=== PATIENT | male | born 1980 | race African-American/Black ===

== ENCOUNTER 2016-11-03 16:06 | Emergency (ER) | payer OTHER ==
[~2016-11-03] VITALS: Ht 182.9 cm; Wt 81.6 kg
[2016-11-03] MEDS ORDERED: levETIRAcetam 500mg vial IV ONE (16:09)
[2016-11-03] MEDS ORDERED: levETIRAcetam 500 MG in D5W 110 ML IV ONE (16:15)
[2016-11-03] MEDS ORDERED: LORazepam Inj 2mg/ml 1ml IV ONE (16:15)
--- NOTE | 2016-11-03 16:25 | Emergency Room Report ---
History of Present Illness General Chief Complaint: Seizure Source: EMS (Oleksandr Urrutia M.D.) Present Illness HPI Patient presents after having a seizure. He's also reported to have drunk alcohol. There is some trauma to his right upper lip and there bleeding there. The patient's been combative with a medics. His Accu-Chek was 105 in the field. His a history of alcohol use. There is apparently a history of seizures. Patient is noncommunicative at this time and no other history is available. (Oleksandr Urrutia M.D.) Allergies: Coded Allergies: UNABLE TO ASSESS (Unverified , 11/03/16) Patient History Limited by: medical condition Past Medical History: see triage record Social History: Reports: alcohol use Social History Narrative homeless Reviewed Nursing Documentation: PMH: Agreed, PSxH: Agreed (Oleksandr Urrutia M.D.) Nursing Documentation-PMH Past Medical History: No History, Except For Hx Hypertension: Yes Hx Seizures: Yes (Oleksandr Urrutia M.D.) Review of Systems All Other Systems: limited (Oleksandr Urrutia M.D.) Physical Exam Vital Signs Date Time Temp Pulse Resp B/P Pulse Ox O2 Delivery O2 Flow Rate FiO2 11/03/16 15:58 101.8 115 28 178/ Sp02 EP Interpretation: reviewed, normal General Appearance: other - dishevelled, Stupor - posslbly post-ictal versus intoxication Head: normocephalic, other - abrasion R cheek Eyes: bilateral eye PERRL, bilateral eye Scleral Injection ENT: moist mucus membranes - no lingual macerations, but .5 cm laceration R anterior inner mouth Neck: supple, no bony tend Respiratory: lungs clear, normal breath sounds Cardiovascular #1: regular rate, rhythm Cardiovascular #2: 2+ radial (R) Gastrointestinal: normal inspection, non tender, no mass, non-distended, abnormal bowel sounds - decreased Musculoskeletal: back normal, gait/station normal, normal range of motion Neurologic: motor strength/tone normal, DTRs symmetric, sensory intact, other - + gag and moves all 4 with good strength Psychiatric: other - stupor Skin: warm/dry, abrasions - r cheek and hands (Oleksandr Urrutia M.D.) Medical Decision Making Diagnostic Impression: Primary Impression: Epileptic seizure, generalized ER Course Patient presents with stupor with alleged seizure and possible alcohol ingestion. Ddx: post ictal, subtherapeutic medications, electrolyte abnormalities, bleed, trauma, electrolyte abnormalities amongst others. Emergent evaluation with CT, labs, EKG. Treatment with ativan. As he has h/o seizure, will give keppra. Patient more awake, giving name and states has been on dilantin and tegretal. Labs significant for no alcohol, elevated WBC. No dilantin or tegretal. CT negative for bleed. Loaded with dilantin. Patient refusing sutures. Improved. Ambulatory. Still not clear mentation. Possibly due to loading dilantin. Signed out to Dr. Gallardo. Laboratory Tests Test 11/03/16 17:15 White Blood Count 18.8 K/UL (4.8-10.8) H Red Blood Count 4.06 M/UL (4.70-6.10) L Hemoglobin 13.7 G/DL (14.2-18.0) L Hematocrit 39.0 % (42.0-52.0) L Mean Corpuscular Volume 96 FL (80-99) Mean Corpuscular Hemoglobin 33.9 PG (27.0-31.0) H Mean Corpuscular Hemoglobin Concent 35.2 G/DL (32.0-36.0) Red Cell Distribution Width 11.2 % (11.6-14.8) L Platelet Count 248 K/UL (150-450) Mean Platelet Volume 7.3 FL (6.5-10.1) Neutrophils (%) (Auto) % (45.0-75.0) Lymphocytes (%) (Auto) % (20.0-45.0) Monocytes (%) (Auto) % (1.0-10.0) Eosinophils (%) (Auto) % (0.0-3.0) Basophils (%) (Auto) % (0.0-2.0) Differential Total Cells Counted 100 Neutrophils % (Manual) 87 % (45-75) H Lymphocytes % (Manual) 4 % (20-45) L Monocytes % (Manual) 9 % (1-10) Eosinophils % (Manual) 0 % (0-3) Basophils % (Manual) 0 % (0-2) Band Neutrophils 0 % (0-8) Platelet Estimate Adequate Platelet Morphology Normal Red Blood Cell Morphology Normal Sodium Level 143 mEQ/L (135-145) Potassium Level 3.6 mEQ/L (3.4-4.9) Chloride Level 100 mEQ/L (98-107) Carbon Dioxide Level 24 mEQ/L (20-30) Anion Gap 19 (5-15) H Blood Urea Nitrogen 10 mg/dL (7-23) Creatinine 1.2 mg/dL (0.7-1.2) Estimate Glomerular Filtration Rate > 60 mL/min (>60) Glucose Level 101 mg/dL (74-106) Calcium Level 9.9 mg/dL (8.6-10.2) Total Bilirubin 0.5 mg/dL (0.0-1.2) Aspartate Amino Transferase (AST) 19 U/L (5-40) Alanine Aminotransferase (ALT) 11 U/L (3-41) Alkaline Phosphatase 93 U/L (40-129) Total Creatine Kinase 533 U/L (38-174) H Troponin I < 0.30 ng/mL (<=0.30) Total Protein 7.7 g/dL (6.6-8.7) Albumin 4.5 g/dL (3.5-5.2) Globulin 3.2 g/dL Albumin/Globulin Ratio 1.4 (1.0-2.7) Salicylates Level < 1 mg/dL (10-30) L Acetaminophen Level < 10 ug/mL (10-30) L Phenytoin (Dilantin) Level < 0.8 ug/mL (10-20) L Carbamazepine (Tegretol) Level < 2.0 ug/mL (4.0-12.0) L Serum Alcohol < 10 mg/dL (Oleksandr Urrutia M.D.) ER Course This patient signed out to me. He has a history of seizure and did not take his Dilantin. He presents with a seizure activity. He said he take Dilantin 3 mg in the morning and 2 at night. Denies any other complaint. Does not want to be switched or any other new medication. atient is awake and walking around without any difficulty. No postictal period. Does not want to stay. (GREG GALLARDO M.D.) EKG Diagnostic Results Rate: tachycardiac ST Segments: no acute changes (Oleksandr Urrutia M.D.) Rhythm Strip Diag. Results EP Interpretation: yes Rhythm: no PVC's, no ectopy, other - ST (Oleksandr Urrutia M.D.) Last Vital Signs Date Time Temp Pulse Resp B/P Pulse Ox O2 Delivery O2 Flow Rate FiO2 11/03/16 15:58 101.8 115 28 178/ Status: improved (Oleksandr Urrutia M.D.) Status: improved (GREG GALLARDO M.D.) Disposition: HOME, SELF-CARE Condition: Stable Scripts Phenytoin Sodium Extended* (DILANTIN*) 100 Mg Capsule 300 MG ORAL BEDTIME, #90 CAP Prov: GREG GALLARDO M.D. 11/04/16 Patient Instructions: Seizure, Adult Additional Instructions: Take your medication. Return if worse. Follow with your DrGolden in 7 days. Oleksandr Urrutia M.D. Nov 03, 2016 16:25 GREG GALLARDO M.D. Nov 04, 2016 00:14
[2016-11-03] MEDS ORDERED: LORazepam Inj 2mg/ml 1ml IM ONE (16:45)
[2016-11-03 17:36] VITALS: BP 127/73
[2016-11-03 17:59] LABS: MEAN CORPUSCULAR HEMOGLOBIN 33.9 PG (27.0-31.0); MEAN CORPUSCULAR HGB CONC 35.2 G/DL (32.0-36.0); MEAN CORPUSCULAR VOLUME 96 FL (80-99); MEAN PLATELET VOLUME 7.3 FL (6.5-10.1); PLATELET COUNT 248 K/UL (150-450); RED BLOOD COUNT 4.06 M/UL (4.70-6.10); RED CELL DISTRIBUTION WIDTH 11.2 % (11.6-14.8); WHITE BLOOD COUNT 18.8 K/UL (4.8-10.8)
[2016-11-03 18:14] LABS: TROPONIN I < 0.30 ng/mL (<=0.30)
[2016-11-03 18:17] LABS: ACETAMINOPHEN < 10 ug/mL (10-30); ALANINE AMINOTRANSFERASE 11 U/L (3-41); ALBUMIN/GLOBULIN RATIO 1.4 (1.0-2.7); ALCOHOL < 10 mg/dL; ANION GAP 19 (5-15); ASPARTATE AMINO TRANSFERASE 19 U/L (5-40); CALCIUM 9.9 mg/dL (8.6-10.2); CARBON DIOXIDE 24 mEQ/L (20-30); CHLORIDE 100 mEQ/L (98-107); CREATININE 1.2 mg/dL (0.7-1.2); GLOMERULAR FILTRATION RATE > 60 mL/min (>60); HEMOLYSIS 5; POTASSIUM 3.6 mEQ/L (3.4-4.9); SODIUM 143 mEQ/L (135-145); TOTAL PROTEIN 7.7 g/dL (6.6-8.7)
[2016-11-03 18:18] LABS: CARBAMAZEPINE (TEGRETOL) < 2.0 ug/mL (4.0-12.0)
[2016-11-03 18:34] LABS: BAND NEUTROPHILS % (MANUAL) 0 % (0-8); BASOPHILS % (MANUAL) 0 % (0-2); EOSINOPHILS % (MANUAL) 0 % (0-3); LYMPHOCYTES % (MANUAL) 4 % (20-45); NEUTROPHILS % (MANUAL) 87 % (45-75); PLATELET ESTIMATE ADEQUATE; PLATELET MORPHOLOGY NORMAL; TOTAL CELLS COUNTED 100
[2016-11-03] MEDS ORDERED: Phenytoin 500 MG in NS 110 ML IVPB STA (18:40)
[2016-11-03] MEDS ORDERED: Phenytoin 250mg/5ml vial ONE (18:41)
[2016-11-03] MEDS ORDERED: Phenytoin 100mg cap ORAL ONE (18:45)
[2016-11-04] MEDS ORDERED: DILANTIN100 MG ORAL (00:13)
[2016-11-04 00:32] VITALS: BP 133/74
[2016-11-04 00:33] VITALS: BP 133/74
--- NOTE | 2016-11-04 09:27 | Diagnostic Imaging Report ---
Indications: Seizure Technique: Continuous helical CT imaging of the brain was performed with automatic exposure control on a Siemens sensation [address] scanner. Axial and coronal images were reconstructed at 5 mm slice thickness and interval. CTDI volume(s): 70 mGy Total DLP: 1505 mGy-cm Findings: Comparison: None. Motion artifact degrades images.. No evidence of mass or hemorrhage, other attenuation abnormality, mass effect, midline shift, hydrocephalus or increased intracranial pressure. Bone window images are unremarkable. Visualized paranasal sinuses and mastoid air cells are clear. IMPRESSION: Negative noncontrast CT scan of the brain, with limitation as described . Examination suboptimal for evaluation of first-time seizure. MRI of the brain without and with gadolinium, seizure protocol, recommended for more complete evaluation, as clinically indicated.. This correlates with Dr. Quigley's preliminary report. The CT scanner at [facility], [place] is accredited by the [employer] and the scans are performed using protocols designed to limit radiation exposure to as low as reasonably achievable to attain images of sufficient resolution adequate for diagnostic evaluation.
== END 2016-11-04 00:34 | disposition home or self-care (01) ==
LOC: EDBD 16:06 → EMR 16:10
DX: G40.409 Other generalized epilepsy and epileptic syndromes, not intractable, without status epilepticus (principal); S01.512A Laceration without foreign body of oral cavity, initial encounter; X58.XXXA Exposure to other specified factors, initial encounter; Y92.89 Other specified places as the place of occurrence of the external cause; I10 Essential (primary) hypertension
CPT/HCPCS: 36415; 70450; 80053; 80156; 80185; 80329; 82550; 84484; 85007; 85025; 96360; 96361; 96372; 96374; 99284; J1165; J1953